=== PATIENT | male | born 2000 | race Caucasian/White ===

== ENCOUNTER 2023-03-14 12:50 | Emergency (ER) | payer OTHER ==
[~2023-03-14] VITALS: Ht 175.3 cm; Wt 45.4 kg
[2023-03-14] MEDS ORDERED: DICLOFENAC SODI75 MG PO (15:37)
[2023-03-14] MEDS ORDERED: CIPRO500 MG PO (15:37)
== END 2023-03-14 15:42 | disposition home or self-care (01) ==
LOC: ER 12:50
DX: R59.1 Generalized enlarged lymph nodes (principal)